=== PATIENT | male | born 1980 ===

== ENCOUNTER 2023-10-12 22:32 | Emergency (ER) | payer MEDICAID ==
[~2023-10-12] VITALS: Ht 167.6 cm; Wt 71.8 kg
[2023-10-12 22:34] VITALS: TEMP 98.2
[2023-10-12] MEDS ORDERED: IBUP-1554 PO (23:49)
[2023-10-12 23:50] VITALS: BP 124/75; PULSE 72; RESP 15
[2023-10-12] MEDS: ACETAMINOPHEN 500 MG TABLET PO ONE (23:59)
== END 2023-10-13 00:24 | disposition home or self-care (01) ==
LOC: EMS 22:32
DX: S00.03XA Contusion of scalp, initial encounter (principal); Y04.2XXA Assault by strike against or bumped into by another person, initial encounter; Y93.89 Activity, other specified; Y92.89 Other specified places as the place of occurrence of the external cause; Y99.8 Other external cause status
CPT/HCPCS: 99283